=== PATIENT | female | born 1960 | race Caucasian/White ===

== ENCOUNTER 2018-03-03 10:18 | Inpatient (IN) | payer MEDICAID ==
[~2018-03-03] VITALS: Ht 167.6 cm; Wt 78.1 kg
[2018-03-03] MEDS ORDERED: ASPI-515 PO (10:39)
[2018-03-03] MEDS ORDERED: ONDANSETRON 2MG/ML, 2ML IVPush ONE (12:00)
[2018-03-03] MEDS ORDERED: SODIUM CHLORIDE FLUSH 10ML SYR IVF ONE (12:00)
[2018-03-03] MEDS ORDERED: ONDANSETRON 2MG/ML, 2ML ONE ×2 (12:27→17:17)
[2018-03-03] MEDS ORDERED: MORPHINE SULFATE 4 MG/ML, 1ML ONE ×2 (12:27→14:59)
[2018-03-03] MEDS: MORPHINE SULFATE 4 MG/ML, 1ML IVPush PRN ×2 (12:28→15:01)
[2018-03-03 12:37] LABS: BASOPHILS # (AUTO) 0.01 x10^3/uL (0-0.1); BASOPHILS % (AUTO) 0 % (0-1); EOSINOPHILS # (AUTO) 0.04 x10^3/uL (0-0.4); EOSINOPHILS % (AUTO) 0 % (1-7); LYMPHOCYTES # (AUTO) 1.72 x10^3/uL (1-3.4); LYMPHOCYTES % (AUTO) 11 % (22-44); MD NO; MEAN CORPUSCULAR HEMOGLOBIN 28.8 pg (27.0-34.8); MEAN CORPUSCULAR HGB CONC 33.2 g/dL (32.4-35.8); MEAN CORPUSCULAR VOLUME 86.8 fL (80-100); MEAN PLATELET VOLUME 9.6 fL (7.4-10.4); MONOCYTES % (AUTO) 4 % (2-9); NEUTROPHILS % (AUTO) 85 % (42-75); PLATELET COUNT 258 x10^3/uL (130-400); RED BLOOD COUNT 4.67 x10^6/uL (3.82-5.3); RED CELL DISTRIBUTION WIDTH 12.3 % (9.6-15.2)
[2018-03-03 12:49] LABS: ALBUMIN 3.8 g/dL (3.4-5.0); ANION GAP 9 mmol/L (5-15); CALCIUM 8.4 mg/dL (8.5-10.1); CHLORIDE 108 mmol/L (98-107)
[2018-03-03 12:52] LABS: ALANINE AMINOTRANSFERASE 66 U/L (12-78); ALKALINE PHOSPHATASE 64 U/L (45-117); BILIRUBIN,TOTAL 0.3 mg/dL (0.2-1.0); CREATININE 0.75 mg/dL (0.55-1.02); TOTAL PROTEIN 7.4 g/dL (6.4-8.2)
[2018-03-03 15:40] VITALS: BP 145/82
[2018-03-03] MEDS ORDERED: BUPIVACAINE/PF-EPI 0.5% 1:200K ONE (16:40)
[2018-03-03] MEDS ORDERED: MIDAZOLAM 1 MG/ML, 2ML ONE (17:15)
[2018-03-03] MEDS ORDERED: FENTANYL PF 100 MCG/2ML ONE ×2 (17:16→18:24)
[2018-03-03] MEDS ORDERED: CEFAZOLIN 1,000 MG ONE (17:17)
[2018-03-03] MEDS ORDERED: KETOROLAC 30 MG/1 ML ONE (17:17)
[2018-03-03] MEDS ORDERED: PROPOFOL 10 MG/ML, 20ML ONE (17:17)
[2018-03-03] MEDS ORDERED: SUCCINYLCHOLINE 20 MG/ML, 10ML ONE (17:17)
[2018-03-03] MEDS ORDERED: GLYCOPYRROLATE 0.2MG/1ML, 5ML ONE (17:17)
[2018-03-03] MEDS ORDERED: PHENYLEPHRINE 10 MG/ML ONE (17:17)
[2018-03-03] MEDS ORDERED: ROCURONIUM 10 MG/ML,10ML ONE (17:17)
[2018-03-03] MEDS ORDERED: BUPIVACAINE/PF-EPI 0.5% 1:200K INFIL ONE (17:42)
[2018-03-03] MEDS ORDERED: SUGAMMADEX 200 MG/2 ML IVPush ONE (17:46)
[2018-03-03] MEDS ORDERED: OXYcodone 5 MG/5 ML ORAL.SOL UDC PO PRN (18:00)
[2018-03-03] MEDS ORDERED: METOCLOPRAMIDE 5 MG/ML, 2ML IV PRN (18:00)
[2018-03-03] MEDS ORDERED: KETOROLAC 30 MG/1 ML IV PRN (18:00)
[2018-03-03] MEDS ORDERED: MEPERIDINE/PF 25MG/0.5ML IVPush PRN (18:00)
[2018-03-03] MEDS ORDERED: LORazepam 2 MG/ML, 1ML IVPush PRN (18:00)
[2018-03-03] MEDS ORDERED: MORPHINE SULFATE 4 MG/ML, 1ML IVPush PRN (18:00)
[2018-03-03] MEDS ORDERED: ALBUTEROL SULFATE 2.5 MG/3 ML NPPB PRN (18:00)
[2018-03-03] MEDS ORDERED: HYDROmorphone 2 MG/ML, 1ML IVPush PRN (18:00)
[2018-03-03] MEDS ORDERED: ACETAMINOPHEN 325 MG TABLET PO PRN ×2 (18:00→20:00)
[2018-03-03] MEDS ORDERED: FENTANYL PF 100 MCG/2ML IV PRN (18:00)
[2018-03-03] MEDS ORDERED: hydrALAzine 20 MG/ML, 1ML IV PRN ×2 (18:00→20:00)
[2018-03-03] MEDS ORDERED: METOPROLOL 1 MG/ML, 5ML IV PRN (18:00)
[2018-03-03] MEDS ORDERED: OXYcodone 5 MG/5 ML ORAL.SOL UDC ONE (18:16)
[2018-03-03] MEDS ORDERED: hydrALAzine 20 MG/ML, 1ML ONE (18:26)
[2018-03-03 19:30] VITALS: BP 146/77
[2018-03-03] MEDS ORDERED: ACETAMINOPHEN 650 MG SUPP PR PRN (20:00)
[2018-03-03] MEDS ORDERED: HYDROcodone/APAP 5/325 TABLET PO PRN (20:00)
[2018-03-03] MEDS: SODIUM CHLORIDE FLUSH 10ML SYR IVF SCH (20:05)
[2018-03-04 00:23] VITALS: BP 118/68
[2018-03-04 04:10] VITALS: BP 127/70
[2018-03-04 08:07] VITALS: BP 155/80
[2018-03-04] MEDS: SODIUM CHLORIDE FLUSH 10ML SYR IVF SCH (08:08)
[2018-03-04] MEDS ORDERED: HYDR-3240 PO (10:38)
[2018-03-04 12:57] VITALS: BP 130/76
== END 2018-03-04 14:57 | disposition home or self-care (01) | DRG 419 ==
LOC: ED 11:20 → EDIP 14:21 → 4NOR 15:28
PROVIDERS: ADMIT Hospitalist; ATTEND Hospitalist
PROC: 0FT44ZZ Resection of Gallbladder, Percutaneous Endoscopic Approach (ICD-10-PCS; principal; 2018-03-03 16:15)
DX: K80.00 Calculus of gallbladder with acute cholecystitis without obstruction (principal); F17.200 Nicotine dependence, unspecified, uncomplicated; J44.9 Chronic obstructive pulmonary disease, unspecified; Z88.8 Allergy status to other drugs, medicaments and biological substances
CPT/HCPCS: 36415; 99285; J3490; 76700; 80053; 83605; 83690; 85025; 88304; 96374; 96375; 96376; G0378; J0690; J1885; J2250; J2405; J2704; J3010; J0330; J0360; J2370